=== PATIENT | female | born 1990 | race Caucasian/White ===

== ENCOUNTER 2020-11-04 06:11 | Inpatient (IN) ==
[2020-11-04 10:15] LABS: Urine Benzodiazepine Screen None Detected (None Detect); Urine Cannabinoids Screen None Detected (None Detect); Urine Opiates Screen None Detected (None Detect)
[2020-11-04] MEDS ORDERED: Lidocaine 1% VIAL 10 MG/ML VIAL ONE ×2 (18:58→19:39)
[2020-11-04] MEDS ORDERED: Dibucaine 1% OINT 28.35 GM TUBE PR PRN (19:10)
[2020-11-04] MEDS ORDERED: Witch Hazel PAD JAR TOPICAL PRN (19:10)
[2020-11-04] MEDS ORDERED: Oxytocin 10 UNITS/ML 1 ML VIAL IM ONE (19:10)
[2020-11-04] MEDS ORDERED: Oxytocin 10 UNITS/ML 1 ML VIAL ONE (19:35)
[2020-11-05 06:04] LABS: ABS Eosinophils 0.1 10^3/ul (0-0.6); ABS Lymphocytes 3.6 10^3/ul (1.0-4.8); ABS Monocytes 1.5 10^3/ul (0-0.8); ABS Neutrophils 11.8 10^3/ul (1.5-7.7); Eosinophil % 0.3 %; Hematocrit 36 % (35-47); Hemoglobin 12.2 g/dL (12.0-16.0); Lymphocyte % 21.2 %; Mean Corpuscular HGB Conc 34 g/dL (31-36); Mean Corpuscular Hemoglobin 29 pg (27-31); Mean Corpuscular Volume 86 fL (80-97); Mean Platelet Volume 9.3 fL (7.4-10.4); Platelet Count 219 10^3/uL (150-450); Red Blood Count 4.22 10^6 /uL (3.70-4.87); Red Cell Distribution Width 15 % (10-15)
[2020-11-05 20:31] VITALS: BP 115/77
== END 2020-11-05 20:25 | disposition home or self-care (01) | DRG 807 ==
LOC: MCHOBOUT 06:11 → MCHOB 08:59
PROVIDERS: ADMIT Midwife; ATTEND Midwife